=== PATIENT | female | born 1955 | race Caucasian/White ===

== ENCOUNTER 2018-02-11 00:25 | Outpatient (CLI) | payer MEDICAID, SELFPAY ==
--- NOTE | 2018-02-11 15:00 | DI.RAD_ITS ---
SYMPTOMS/DIAGNOSIS: NEW COMPRESSION FX, S32.04OD DEXA SCAN: Routine examination. Lateral view of the spine shows a compression fracture deformity of the L4 vertebral body. This was present on the x-ray of the lumbar spine from . No other compression fractures are seen. Evaluation of the left hip shows a total T score of -2.2 and a Z score of -1.1. This is consistent with osteopenia and an increased fracture risk. Evaluation of the lumbar spine shows a total T score of -1.0 and a Z score of 0.6. This is consistent within normal limits. No evidence of osteoporosis is present. IMPRESSION: No evidence of osteoporosis.
== END 2018-02-11 00:45 ==
PROVIDERS: PCP Family Medicine; Visit Provider Family Medicine
DX: M85.88 Other specified disorders of bone density and structure, other site (principal); S32.040D Wedge compression fracture of fourth lumbar vertebra, subsequent encounter for fracture with routine healing
CPT/HCPCS: 77080

== ENCOUNTER 2018-03-12 15:37 | Outpatient (CLI) | payer MEDICAID, SELFPAY ==
[2018-03-12 16:02] LABS: Abs Immature Grans 0.01 k/cumm (0.0-0.09); Absolute Basophil Count 0.06 k/cumm (0.0-0.2); Absolute Eosinophil Count 0.14 k/cumm (0.0-0.7); Absolute Lymphocyte Count 2.36 k/cumm (1.2-3.4); Absolute Monocyte Count 0.57 k/cumm (0.11-0.7); Absolute Neutrophil Count 4.49 k/cumm (1.2-6.7); Basophils % 0.8; Eosinophils % 1.8; HCT 39.1 % (36.0-46.0); HGB 13.3 g/dL (12.0-15.5); Immature Grans % 0.1; Lymphocytes % 30.9; Mean Corpuscular Hemoglobin 32.3 pg (27.0-33.0); Mean Corpuscular Volume 94.9 fL (80-95); Mean Platelet Volume 11.8 fL (8.0-11.0); Monocytes % 7.5; Neutrophils % 58.9; Platelet Count 147 x1000/uL (130-400); RBC 4.12 m/cumm (4.00-5.20); RBC Distribution Width 13.4 % (11.7-14.6); White Blood Cell Count 7.63 k/cumm (4.4-10.8)
[2018-03-12 16:12] LABS: Hemoglobin A1C 5.4 % (4.5-6.2)
[2018-03-12 16:53] LABS: ALT 16 U/L (12-78); AST 14 U/L (15-37); Albumin 3.7 g/dL (3.4-5.0); Alkaline Phosphatase 69 U/L (46-116); Anion Gap 7.9 mmol/L (3-11); BUN 17 mg/dL (7-18); Bilirubin, Total 0.4 mg/dL (0.2-1.0); CO2 28.1 mmol/L (21.0-32.0); CREATININE 0.85 mg/dL (0.55-1.02); Calcium 9.1 mg/dL (8.5-10.1); Chloride 104 mmol/L (98-107); Cholesterol 167 mg/dL (50-200); Glucose 90 mg/dL (70-100); HDL Cholesterol 60 mg/dL (40-60); LDL CHOLESTEROL 97 mg/dL (<100); Potassium 4.2 mmol/L (3.5-5.1); Sodium 140 mmol/L (136-145); TSH (W/Ref FT4) 1.25 uIU/mL (0.358-3.74); Total Protein 6.6 g/dL (6.4-8.2); Triglyceride 51 mg/dL (30-150)
[2018-03-15 07:25] LABS: Vitamin D 25 Total 43.2 ng/ml (30-100)
== END 2018-03-12 15:57 ==
PROVIDERS: PCP Student in an Organized Health Care Education/Training Program; Visit Provider Nurse Practitioner Psychiatric/Mental Health
DX: F50.00 Anorexia nervosa, unspecified (principal)
CPT/HCPCS: 36415; 80053; 80061; 82306; 83721; 83036; 84443; 85025; 93005; 93010

== ENCOUNTER 2018-06-23 14:46 | Outpatient (CLI) | payer MEDICAID, SELFPAY ==
[2018-06-23 20:24] LABS: TSH 0.96 uIU/mL (0.358-3.74)
== END 2018-06-23 15:06 ==
PROVIDERS: PCP Student in an Organized Health Care Education/Training Program; Visit Provider Student in an Organized Health Care Education/Training Program
DX: R53.83 Other fatigue (principal)
CPT/HCPCS: 84443

== ENCOUNTER 2019-07-07 01:26 | Outpatient (CLI) | payer MEDICAID, SELFPAY ==
--- NOTE | 2019-07-07 09:00 | ETT_ITS ---
APPROVED REPORT Exam: Exercise Treadmill Patient Location: Out-Patient Room/Bed: Stress Nurse: Rachna Houston RN BMI: 19.61 Baseline Rhythm: Sinus Rhythm Indications: Exertional dyspnea and chest pain. Medical History Medical History: Smoking Cardiac Medications: None, Allergies: No known drug allergies Cardiac Risk Factors: Smoking Pretest Chest Pain Characteristics: Exertional Chest pain Exercise History: Physically active Lung Sounds: Clear to auscultation Heart Sounds: Regular Stress Test Details Test: Exercise stress testing was performed using a Kirill protocol. Rest Stress HR Resting HR Supine: 68 bpm Max Heart Rate (APMHR): 156 bpm Resting HR Standin bpm Target HR (85% APMHR): 132 bpm Max HR Achieved: 135 bpm % of APMHR: 86 Recovery HR: 81 bpm HR response to stress: Normal HR response to stress BP Resting BP Supine: 170/90 mmHg Resting BP Standin/85 mmHg Max BP: 190/80 mmHg Recovery BP: 150/85 mmHg BP response to stress: Normal blood pressure response to stress. Comment: Drop in systolic BP upon immediate recovery. ECG Resting ECG: Sinus Rhythm Stress ECG: Sinus Tachycardia ST Change: No significant ST segment changes Recovery ECG: Sinus Rhythm Recovery ST Change: No significant ST segment changes Recovery Arrhythmia: VPC Clinical Reason for Termination: Fatigue Stress Symptoms: General Fatigue Exercise duration: 8 min00 sec Highest Stage Reached: Stage 3: 3.4 mph at 14% grade. Exercise capacity: 10.16 METs Functional Capacity: Above average capacity Angina Score: None Stress ECG Conclusion 1. Resting electrocardiogram was normal. 2. Patient exercised on the Kirill protocol and completed a workload of 10.16 METS. She achieved 86% of predicted heart rate for age. There were no symptoms to suggest angina 3. Normal heart rate and blood pressure response to exercise 4. Electrocardiographically negative for myocardial ischemia 5. No significant dysrhythmia Protocol Used: Kirill Protocol Stress Test Summary STAGE Time (mins) Speed (mph) Grade (%) HR BP SYMPTOMS METS Supine 68 170/90 Standing 89 150/85 1 3 1.7 10 112 160/85 4.6 2 6 2.5 12 125 190/80 7 3 9 3.4 14 135 10.2 1 min recovery 121 146/75 3 min recovery 91 182/86 6 min recovery 81 150/85
[2019-07-07 09:44] LABS: HCT 40.4 % (36.0-46.0); HGB 13.7 g/dL (12.0-15.5); Mean Corp. HGB Concentration 33.9 g/dL (32.0-36.0); Mean Corpuscular Hemoglobin 32.2 pg (27.0-33.0); Mean Corpuscular Volume 94.8 fL (80-95); Mean Platelet Volume 11.2 fL (8.0-11.0); Platelet Count 163 x1000/uL (130-400); RBC 4.26 m/cumm (4.00-5.20); RBC Distribution Width 13.6 % (11.7-14.6); White Blood Cell Count 6.17 k/cumm (4.4-10.8)
[2019-07-07 11:15] LABS: Total Iron Binding Capacity 293 ug/dL (250-450)
[2019-07-07 11:29] LABS: ALT 18 U/L (14-59); AST 14 U/L (15-37); Albumin 3.8 g/dL (3.4-5.0); Alkaline Phosphatase 75 U/L (46-116); Anion Gap 10.4 mmol/L (3-11); BUN 18 mg/dL (7-18); Bilirubin, Total 0.9 mg/dL (0.2-1.0); CO2 27.6 mmol/L (21.0-32.0); CREATININE 0.87 mg/dL (0.55-1.02); Calcium 9.5 mg/dL (8.5-10.1); Calculated LDL 107 mg/dL (<100); Chloride 106 mmol/L (98-107); Cholesterol 186 mg/dL (<200); Ferritin 76 ng/mL (8-252); Glucose 100 mg/dL (74-106); HDL Cholesterol 60 mg/dL (40-60); Potassium 3.7 mmol/L (3.5-5.1); Sodium 144 mmol/L (136-145); TSH (W/Ref FT4) 1.22 uIU/mL (0.36-3.74); Total Protein 6.7 g/dL (6.4-8.2); Triglyceride 96 mg/dL (<150); Vitamin B12 593 pg/mL (193-986)
== END 2019-07-07 01:46 ==
PROVIDERS: PCP Nurse Practitioner; Visit Provider Nurse Practitioner
DX: R06.09 Other forms of dyspnea (principal); R07.89 Other chest pain; I10 Essential (primary) hypertension; R00.2 Palpitations; F17.200 Nicotine dependence, unspecified, uncomplicated; R53.83 Other fatigue; F20.1 Disorganized schizophrenia
CPT/HCPCS: 36415; 80053; 80061; 85027; 82607; 82728; 83550; 84443; 93017

== ENCOUNTER 2020-11-05 03:53 | Outpatient (CLI) | payer MEDICARE, MEDICAID, SELFPAY ==
[2020-11-05 11:27] LABS: Abs Immature Grans 0.01 10^3/uL (0.0-0.06); Absolute Basophil Count 0.06 10^3/uL (0.0-0.2); Absolute Eosinophil Count 0.07 10^3/uL (0.0-0.7); Absolute Lymphocyte Count 2.46 10^3/uL (1.2-3.4); Absolute Neutrophil Count 3.27 10^3/uL (1.2-6.7); Basophils % 0.9; Eosinophils % 1.1; HCT 42.6 % (36.0-46.0); HGB 14.4 g/dL (11.2-15.7); Immature Grans % 0.2; Lymphocytes % 38.6; MCH 31.4 pg (27.0-33.0); MCHC 33.8 % (32.0-36.0); MPV 11.1 fL (8.0-11.0); Monocytes % 7.8; Neutrophils % 51.4; Nucleated RBC 0 %; Platelet Count 158 10^3/uL (130-400); RBC 4.58 10^6/uL (3.93-5.22); RDW 13.2 % (11.7-14.6); RDW-SD 45.3 fL; WBC 6.37 10^3/uL (4.4-10.8)
[2020-11-05 12:15] LABS: Hemoglobin A1C 5.4 % (<5.7)
[2020-11-05 12:37] LABS: Vitamin D 25 Total 37.4 ng/mL (30-100)
[2020-11-05 12:41] LABS: ALT 25 U/L (14-59); AST 21 U/L (15-37); Albumin 3.9 g/dL (3.4-5.0); Alkaline Phosphatase 74 U/L (46-116); Anion Gap 9.8 mmol/L (3-11); BUN 16 mg/dL (7-18); Bilirubin, Total 0.8 mg/dL (0.2-1.0); CO2 30.2 mmol/L (21.0-32.0); CREATININE 0.9 mg/dL (0.55-1.02); Calcium 9.9 mg/dL (8.5-10.1); Calculated LDL 118 mg/dL (<100); Chloride 102 mmol/L (98-107); Cholesterol 199 mg/dL (<200); Ferritin 91 ng/mL (8-252); Glucose 94 mg/dL (74-106); HDL Cholesterol 67 mg/dL (40-60); Magnesium 1.7 mg/dL (1.8-2.4); Sodium 142 mmol/L (136-145); TSH 1.12 uIU/mL (0.36-3.74); Triglyceride 74 mg/dL (<150); Vitamin B12 801 pg/mL (193-986)
[2020-11-05 12:42] LABS: Folate > 20.0 ng/mL (8.6-20.0)
[2020-11-05 13:09] LABS: FREE T4 1.18 ng/dL (0.76-1.46)
== END 2020-11-05 03:54 | disposition home or self-care (01) ==
LOC: LBO 03:54
PROVIDERS: PCP Nurse Practitioner; Visit Provider Psychiatry & Neurology Psychiatry
DX: F20.9 Schizophrenia, unspecified (principal); Z79.899 Other long term (current) drug therapy
CPT/HCPCS: 36415; 80053; 80061; 82306; 82607; 82728; 82746; 83036; 83735; 84439; 84443; 84481; 85025; 86140

== ENCOUNTER 2021-04-15 03:04 | Outpatient (CLI) | payer MEDICARE, MEDICAID, SELFPAY ==
[2021-04-15 13:00] LABS: Abs Immature Grans 0.02 10^3/uL (0.0-0.06); Absolute Basophil Count 0.05 10^3/uL (0.0-0.2); Absolute Eosinophil Count 0.04 10^3/uL (0.0-0.7); Absolute Lymphocyte Count 1.89 10^3/uL (1.2-3.4); Absolute Monocyte Count 0.63 10^3/uL (0.1-0.8); Absolute Neutrophil Count 4.28 10^3/uL (1.2-6.7); Basophils % 0.7; Eosinophils % 0.6; HGB 13.4 g/dL (11.2-15.7); Immature Grans % 0.3; Lymphocytes % 27.4; MCH 30.8 pg (27.0-33.0); MCHC 32.7 % (32.0-36.0); MCV 94.3 fL (80-95); MPV 10.8 fL (8.0-11.0); Monocytes % 9.1; Neutrophils % 61.9; Nucleated RBC 0 %; Platelet Count 175 10^3/uL (130-400); RBC 4.35 10^6/uL (3.93-5.22); RDW 13.4 % (11.7-14.6); RDW-SD 46.7 fL; WBC 6.91 10^3/uL (4.4-10.8)
[2021-04-15 14:35] LABS: ALT 21 U/L (14-59); AST 15 U/L (15-37); Alkaline Phosphatase 69 U/L (46-116); Anion Gap 6.8 mmol/L (3-11); BUN 11 mg/dL (7-18); Bilirubin, Total 0.5 mg/dL (0.2-1.0); CO2 31.2 mmol/L (21.0-32.0); CREATININE 0.8 mg/dL (0.55-1.02); Calcium 9.4 mg/dL (8.5-10.1); Chloride 104 mmol/L (98-107); Glucose 91 mg/dL (74-106); Potassium 4.4 mmol/L (3.5-5.1); Sodium 142 mmol/L (136-145); Total Protein 7.1 g/dL (6.4-8.2)
[2021-04-15 14:36] LABS: C-Reactive Protein < 0.05 mg/dL (0.0-0.3)
[2021-04-15 15:12] LABS: Vitamin B12 827 pg/mL (193-986)
[2021-04-15 15:14] LABS: Folate > 20.0 ng/mL (8.6-20.0)
== END 2021-04-15 03:05 | disposition home or self-care (01) ==
PROVIDERS: PCP Nurse Practitioner; Visit Provider Psychiatry & Neurology Psychiatry
DX: F20.9 Schizophrenia, unspecified (principal)
CPT/HCPCS: 36415; 80053; 80061; 82306; 82607; 82728; 82746; 83036; 83735; 84439; 84443; 85025; 86140

== ENCOUNTER 2021-09-09 00:39 | Outpatient (CLI) | payer MEDICARE, MEDICAID, SELFPAY ==
--- NOTE | 2021-09-09 08:30 | DI.MAMMO_ITS ---
Exam(s) MAMMO SCREENING EXAM: MAMMO SCREENING CLINICAL HISTORY: screening,z12.39 TECHNIQUE: Mammograms were interpreted according to the usual protocol including computer analysis w [id number] CAD system, tomosynthesis and C-view imaging. COMPARISON: None available. FINDINGS: The breasts are composed of heterogeneously dense fibroglandular densities, Breast Density category C . No suspicious masses or suspicious microcalcifications are seen. No skin thickening or abnormal axillary lymph nodes are seen. IMPRESSION: BI-RADS Category 1, Negative mammogram. Yearly screening mammography is recommended. Breast Density Category C, heterogeneously Dense. The mammogram demonstrates the patient's breast tissue is dense. Dense breast tissue is very common a nd is not abnormal but dense breast tissue can make it harder to find cancer on a mammogram. Also, de nse breast tissue may increase breast cancer risk. This information about the result of the mammogram report was provided to the patient to raise their awareness. Use this report when you speak with the patient about their risks for breast cancer, which includes their family history. At that time, you may recommend additional screening tests (Ultrasound or MRI) as they might be useful based on their r isk. A negative radiographic report should not delay biopsy if a dominant or clinically suspicious mass is present. Up to ten percent of cancers are not identified on mammography. A negative report may reinforce clinical impression. Adenosis and dense breasts may obscure an underlying neoplasm. False positive reports average 6 to 10%.
--- NOTE | 2021-09-09 08:30 | DI.CTLCSR_ITS ---
Exam(s) CT CHEST LUNG CANCER SCREEN EXAM: CT CHEST LUNG CANCER SCREEN CLINICAL HISTORY: Screening for lung cancer,current smoker, f17.210 TECHNIQUE: Imaging Protocol: Axial computed tomography images with coronal and sagittal reformatted images were created and reviewed COMPARISON: No exams were available for comparison FINDINGS: Tracheobronchial tree: Patent where visualized. Mediastinum and Flora: No dominant adenopathy or fluid collection. Pulmonary parenchyma: No consolidation or dominant measurable mass. Mild to moderate centrilobular an d paraseptal emphysema.. Linear scarring or atelectasis left lower lobe. Minimal scarring rectum at electasis right posterior lung base. Lung Nodules: None. Pleura: No effusion or pneumothorax. Heart: The heart is not dilated. Mild coronary artery calcifications are seen. Aorta: Thoracic aorta non-dilated.[id number] calcification. Upper abdomen: Unremarkable. Bones: Mild scoliosis and and mild degenerative changes of the thoracic spine. Soft Tissues: Unremarkable. IMPRESSION: Emphysematous changes. No pulmonary nodules. Lung RADS Cat 1 - Negative: No nodules and definitely benign nodules Lung-RADS 1.0 CATEGORIES: Category 0 - Prior chest CT exam(s) being located for comparison. Category 1 - Annual screening in 12 months. No nodules or definitely benign nodules. Category 2 - Annual screening in 12 months. Benign appearance. Nodules with low likelihood of becomin g active cancer. Category 3 - 6-month follow-up. Probably benign. Short-term follow-up suggested. Nodules with low lik elihood of becoming active cancer. Category 4A - 3-month follow-up and CT/PET if >8 mm in size. Suspicious finding. Findings which requi re additional testing. Category 4B - Findings which require additional testing and tissue sampling. Category 4X - Category 3 or 4 nodules with additional features or imaging findings that increases the suspicion of malignancy. Modifier S- Potentially clinically significant findings (non lung cancer) RADIATION DOSE DELIVERED: 86.07mGy.cm Total DLP 1.84mGy CTDIvol DATA REPOSITORY: All CT scans at this facility are submitted to the National Radiology Data Registry (NRDR) Dose Index Registry (DIR) with the [employer] (ACR). RADIATION OPTIMIZATION: All CT scans at this facility use at least one of these dose optimization te chniques: automated exposure control; mA and/or kV adjustment per patient size (includes targeted exa ms where dose is matched to clinical indication); or iterative reconstruction.
== END 2021-09-09 00:59 ==
PROVIDERS: PCP Nurse Practitioner; Visit Provider Nurse Practitioner
DX: Z12.31 Encounter for screening mammogram for malignant neoplasm of breast (principal); F17.210 Nicotine dependence, cigarettes, uncomplicated; Z12.2 Encounter for screening for malignant neoplasm of respiratory organs
CPT/HCPCS: 71271; 77063; 77067

== ENCOUNTER → 2021-10-15 13:32 | Outpatient (BNVA) | payer MEDICARE, MEDICAID, SELFPAY | PROVIDERS: PCP Nurse Practitioner; Referring Provider Nurse Practitioner; Visit Provider Surgery | DX: Z12.11 Encounter for screening for malignant neoplasm of colon (principal); Z12.12 Encounter for screening for malignant neoplasm of rectum; R19.5 Other fecal abnormalities; F20.9 Schizophrenia, unspecified; Z72.0 Tobacco use ==

== ENCOUNTER 2021-10-23 10:04 | Day surgery (SDC) | payer MEDICARE, MEDICAID, SELFPAY ==
--- NOTE | 2021-10-23 06:46 | W.COLOREPORT ---
Colonoscopy Report Date of procedure: 10/23/21 Pre-op diagnosis general: Colon Cancer Screening, + Cologuard Post-op diagnosis procedure note: other (colorectal polyps) Procedure: Colonoscopy with polypectomy Surgeon: Shira Rojas Anesthesia Type: General:No Airway Estimated blood loss (mL): 5 Pathology: other (ascending, transverse x2, descending x4 and rectal polyp) Complications: None Disposition: same day Indications: Ms Arreguin is a pleasant 66-year-old female who is here today with her caregiver to discuss a colonoscopy.? She has never had a colonoscopy before.? She recently underwent a Cologuard test which came back positive.? She denies any family history of colon cancer.? I discussed the procedure in detail as well as the prep with her and her caregiver.? We reviewed the risks and benefits of the procedure and the patient wished to proceed. Risks, benefits and complications have been reviewed. Complications include but are not limited to bleeding, pain, perforation, missed small lesion/polyp, sore throat, aspiration and adverse reaction to the medications. Questions were entertained and answered to their satisfaction and they wished to proceed. No guarantees were given or implied. Proceed with colonoscopy under sedation Prep: Miralax/Dulcolax Procedure Start Time: 11:21 Procedure End Time: 12:11 Retraction Time: 18 minutes Findings: Multiple sessile polyps Procedure Description: After informed consent was obtained the patient was taken to the procedure room and placed in a left decubitous position. Monitors were applied and a time out was done. The patients name, date of , procedure, allergies to medications and metal in their body was reviewed. The patient was then sedated. Once sedated and comfortable a rectal exam was done. External exam was normal. Internal exam revealed a normal sphincter tone and no palpable masses. The scope was then introduced and retro-flexed. no internal hemorrhoids, polyps or masses were identified on retro-flexion. The scope was then advanced to the cecum without difficulty. The ileocecal vlave and appendiceal orifice were identified. The prep was adequate. The scope was then slowly retracted over 18 minutes back into the rectum. Polyps were removed with cold forceps in the Transverse colon, descending colon and rectum. Polyps were removed with a hot snare in the Transverse colon and ascending colon. There was no diverticulosis noted. The scope was removed and the patient was woken up and taken back to Same day surgery in stable condition. The patient tolerated the procedure well and there were no immediate complications.
--- NOTE | 2021-10-23 06:47 | W.PM.DSUDISC ---
Discharge Plan Disposition Patient Disposition: HOME Condition: Good Discharge Details Reason For Visit: Colonoscopy Attending Provider: Shira Rojas Primary Care Provider: Lida Boyd Home Meds and New Rx's Prescriptions: Continued acetaminophen [Tylenol Extra Strength] 500 MG tablet 500 mg PO PRN blister daren meds lorazepam [Ativan] 1 mg tablet 1 mg PO DAILY PRN Rx Instructions: Note dated 08/09/20 [facility] Increased from 0.5 to 1 mg daily prn.cgc quetiapine [Seroquel] 50 mg tablet 25 mg PO QHS Label Comments: Decreases by Yang Cuevas to decrease am lethargy cholecalciferol (vitamin D3) 50 mcg (2,000 unit) capsule 50 mcg PO DAILY citalopram [Celexa] 10 mg tablet 10 mg PO DAILY calcium carbonate-vitamin D3 600 mg-10 mcg (400 unit) capsule 1 cap PO BID Qty: 180 3RF multivitamin [One Daily Multivitamin] Tablet 1 tab PO DAILY Qty: 30 11RF Rx Instructions: blister daren Invega Sustenna 117 mg/0.75 mL syringe 117 mg IM .[id number] Rx Instructions: 10/03/21 dose per Yang Cuevas NK vitamin B complex Capsule 1 cap PO DAILY Rx Instructions: 10/03/21 per WAYNE Cuevas guaifenesin 600 mg Tablet Extended Release 12hr 600 mg PO DIRECTED PRN Discontinued bisacodyl [Dulcolax (bisacodyl)] 5 mg tablet,delayed release (DR/EC) 5 mg PO ONCE Qty: 4 0RF Rx Instructions: Take according to provider's instructions for colonoscopy prep. polyethylene glycol 3350 17 gram/dose powder 17 g PO ONCE Qty: 238 0RF Rx Instructions: To be taken as directed by prescriber's office for colonoscopy prep. Discharge Instructions Instructions: Colorectal Polyps (DC) Additional Instructions: Findings: multiple polyps Follow up: will depend on the pathology results Please call if you develop: fevers >101.5 Nausea or Vomiting Abdominal pain that is not transient Rectal bleeding that is more then a tbsp A hard abdomen and inability to pass gas DAY SURGERY UNIT POST ENDOSCOPY INSTRUCTIONS Instructions for everyone who is given Anesthesia: For your safety, please do the following for the next 24 Hours: a. Do not drive or operate dangerous equipment b. Do not drink alcohol beverages or use any recreational drugs for the first 24 hours or while taking pain medications. The medications in your body may have a reaction that can be dangerous. c. Do not make any important decisions or sign any important papers 1. Generally there are no restrictions on your activity after a day or so has gone by, but you may feel a bit fatigued for a few days. 2. After you arrive home you may have a light meal and return to a normal diet as you can tolerate it without feeling sick to your stomach. 3. After surgery, you may feel pain or discomfort. This should be only transient, but if it persists please contact your doctor. 4. If there are any questions regarding the findings of your procedure, please feel free to contact your doctor. 6. If you are unable to contact your doctor with a problem, contact the hospital at [phone]. 7. Continue all your regular medications unless directed otherwise. I understand the above instructions and have no questions. Signature of Patient or Responsible Adult Escort Date/Time Name of Responsible Adult Escort Signature of Nurse Date/Time Activity:: Activity as Tolerated Diet:: As Tolerated Discharge Orders Discharge Orders: Discharge Order (Routine); Ordered 10/23/21 Ordered By: Shira Rojas
[2021-10-23 10:20] VITALS: BP 149/79; PULSE 68; RESP 18; TEMP 36; O2SAT 95
--- NOTE | 2021-10-23 10:35 | ANES.PREOP_ITS ---
General Info Date of Service Date Performed: 10/23/21 Height: 5 ft 7.25 in Weight: 57.8 kg Body Mass Index (BMI): 19.8 Surgical Procedure: Operation Date: 10/23/21 11:35 Proposed Procedure Side Surgeon p Colonoscopy Shira Rojas MD Meds Allergies and Home Medications Allergies Allergy/AdvReac Type Severity Reaction Status Date / Time No Known Allergies Allergy Verified 10/23/21 10:29 Home Medication Medication Instructions Recorded acetaminophen 500 mg tablet 500 mg PO PRN 07/03/17 (Tylenol Extra Strength) Blister Cliff Meds 10/07/17 lorazepam 1 mg tablet (Ativan) 1 mg PO DAILY PRN 09/05/20 cholecalciferol (vitamin D3) 50 50 mcg PO DAILY 05/16/21 mcg (2,000 unit) capsule citalopram 10 mg tablet (Celexa) 10 mg PO DAILY 05/16/21 quetiapine 50 mg tablet (Seroquel) 25 mg PO QHS 05/16/21 calcium carbonate 600 mg-vitamin 1 cap PO BID #180 caps 08/12/21 D3 10 mcg (400 unit) capsule multivitamin (One Daily 1 tab PO DAILY #30 tabs 08/12/21 Multivitamin tablet) paliperidone palmitate 117 mg/0.75 117 mg IM .[id number] 10/08/21 mL intramuscular syringe (Invega Sustenna) vitamin B complex 1 cap PO DAILY 10/08/21 bisacodyl 5 mg tablet,delayed 5 mg PO ONCE #4 tabs 10/15/21 release (Dulcolax (bisacodyl)) polyethylene glycol 3350 17 17 g PO ONCE #238 grams 10/15/21 gram/dose oral powder guaifenesin 600 mg tablet, 600 mg PO DIRECTED PRN 10/22/21 extended release 12 hr Current Visit Medications: Current Medications Generic Name Dose Route Start Last Admin Trade Name Freq PRN Reason Stop Dose Admin Hyoscyamine Sulfate 0.125 mg 10/23/21 06:47 Hyoscyamine 0.125 Mg Sl/Oral/Chew SL DIRECTED PRN Ringer's Solution 1,000 mls @ 80 mls/hr 10/23/21 06:00 IV 11/21/21 23:59 INFUSION BECK IV Miscellaneous Supplies 1 each 10/23/21 06:00 Iv Access IV 11/21/21 23:59 DIRECTED [facility] Ondansetron HCl 4 mg 10/23/21 06:47 Ondansetron 4 Mg/2 Ml Vial IVP Q4H PRN PRN Nausea / Vomiting Sodium Chloride 0 ml 10/23/21 06:00 Normal Saline Flush 10 Ml Syr IV 11/21/21 23:59 PRN PRN Sodium Chloride 0 ml 10/23/21 06:00 Normal Saline 10 Ml Vial IJ 11/21/21 23:59 DIRECTED PRN Sterile Water 0 ml 10/23/21 06:00 Water,Injection,Sterile 10 Ml Vial IJ 11/21/21 23:59 DIRECTED PRN PFSH Active Problems Active Problems: Problem Status Onset Code Positive colorectal cancer screening using Cologuard test R19.5 Lung cancer screening declined by patient Z53.20 TAYLOR (dyspnea on exertion) R06.09 Chest pain R07.9 Tobacco abuse Z72.0 Heart palpitations 2018 R00.2 Schizophrenia F20.9 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 Had picked it off, but it has grown back and seems larger. Smooth, soft, rounded black mole -- with distinct dark dots within it. Not bleeding, mobile. Note: other small lesions warrant visual eval by derm (above left lip, rt cheek). POssible Hx seeing dermatology ([facility]?) years ago. Closed compression fracture of L4 lumbar vertebra (11/16/17) [facility], @ risk for osteoporosis .. Dexa ( Colon cancer screening declined Encounter to establish care Fatigue Mammogram declined Medicare annual wellness visit, subsequent Medication course changed (05/2018) Sees DAX[facility] Rocha .. changing meds: stopped Seroquel, scheduled for injection [ ] Osteopenia per DEXA Medical History Comments:: Pt has expiratory wheezing in upper and base of right lung Surgical History Surgical History excision deformity Left ear (~05/2008) Dr. Edi Esteban Tobacco Smoking/Tobacco Use Status: Current every day Tobacco Type: cigarettes Smoking packs per day: 1 Smoking cigarettes per day: 20.0 Years smoked: 40 Smoking pack- years: 40.00 Passive smoking exposure: Yes Second hand exposure: Yes Alcohol Alcohol Intake: never Substance Use Substance use: Never Substance use type: does not use Vital Signs and Lab Results Vital Signs Most Recent Vital Signs in EMR: Most Recent Vital Signs Temp Pulse Resp BP Pulse Ox 36.0 C L 68 18 149/79 H 95 10/23/21 10:20 10/23/21 10:20 10/23/21 10:20 10/23/21 10:20 10/23/21 10:20 Lab Results Blood Type / Crossmatch: No Data to Display Complete Blood Count: No Data to Display Complete Metabolic Panel: No Data to Display Liver Function Panel: No Data to Display Coagulation Panel: No Data to Display Cardiac Panel: No Data to Display Arterial Blood Gas: No Data to Display Venous Blood Gas: No Data to Display Pancreas Panel: No Data to Display Thyroid Panel: No Data to Display Infectious Disease: No Data to Display Blood Cultures: No Data to Display Toxicology Panel: No Data to Display Imaging and Studies Imaging and Studies Study information below may be from another EMR and interpreted by another provider. Please see original notes in EMR for more complete details. Stress Test Summary: DATE OF SERVICE: : 1955 APPROVED REPORT Exam: Exercise Treadmill Patient Location: Out-Patient Room/Bed: Stress Nurse: Rachna Houston RN BMI: 19.61 Baseline Rhythm: Sinus Rhythm Indications: Exertional dyspnea and chest pain. Conclusion: Normal Stress Test Anesthesia Assessment and Plan Anesthesia History Personal History: No History of Anesthesia Complications Family History: No Family History of Anesthesia Complications Exercise Tolerance Exercise Tolerance: Metabolic Equivalents>4 Pertinent Negatives Pertinent Negatives: No Symptoms of GERD Cardiac & Pulmonary Exam Cardiac Exam: Normal S1/S2 Heart Sounds Pulmonary Exam: Clear Bilateral Breath Sounds Implantable Cardiac Device Does patient have a Pacemaker or an ICD?: No Airway Exam Known Difficult Airway: No Mallampati Class: 1 Mouth Opening: Normal (> 3cm) Thyromental Distance: Greater than 3 cm Neck Range of Motion: Full ROM Neck Circumference: Normal Teeth Condition: Removable Dentures/Plates Upper ASA Classification ASA Score: ASA 2 Emergency Case?: No NPO Status NPO Status: NPO Clears >2 hours, Solids >8 hours Anesthesia Plan Resuscitation Status: Full Code Anesthesia Technique: General Anesthesia Airway Planned: Natural Airway Monitors Used: Standard Monitors Preoperative Comments:: Pt. states she has a very mild cold. Preop spoke to her caregiver who states she always has mild allergies this time of year with the pollen.
[2021-10-23] MEDS: Lactated Ringers 1,000 ML 80 ML IV (10:43)
[2021-10-23 11:19] VITALS: BMI 19.8
--- NOTE | 2021-10-23 11:37 | BOWEL_PTH ---
PATIENT: Haydee Arreguin LOC: [facility] U#:[id number] AGE/SX: 66/F ROOM: RE10/23/[address]: Shira Rojas MD : 1955 BED: DIS: 10/23/2021 SPEC #: [id number] RECD: 10/23/21 12:51 STATUS: JOSE REAngelica #: [id number] NAOMIE: 10/23/21 11:[address]: Shira Rojas DEPT: Surgical Specimen RECD BY: Avelina Mitchell ENTERED: 10/23/21 12:53 SP TYPE: Bowel OTHR DR: Lida Boyd, JENA Tissues: 1 - BIOPSY BOWEL 2 - BIOPSY BOWEL 3 - BIOPSY BOWEL 4 - BIOPSY BOWEL 5 - BIOPSY BOWEL Procedures: GROSS AND MICRO LEVEL 4 Comments: [id number]
[2021-10-23 12:20] VITALS: BP 138/77; PULSE 66; RESP 18; TEMP 36.2; O2SAT 96
[2021-10-23] MEDS: Ondansetron 4 MG/2 ML VIAL IVP (12:44)
[2021-10-23 12:52] VITALS: BP 153/68; PULSE 54; RESP 16; TEMP 36; O2SAT 90
--- NOTE | 2021-10-23 12:58 | W.ANESPOSTOP ---
Postoperative Evaluation Date, Time and Location Date Performed: 10/23/21 Time Performed: 12:58 Patient Location: Day Surgery Unit Vital Signs Most Recent Imported Vital Signs: Most Recent Vital Signs Temp Pulse Resp BP Pulse Ox 36.2 C L 66 18 138/77 96 10/23/21 12:20 10/23/21 12:20 10/23/21 12:20 10/23/21 12:20 10/23/21 12:20 Pain Score Most Recent Pain Score: Most Recent Pain Score Pain Level 0 10/23/21 12:20 Assessment Mental Status: Awake (Alert & Oriented to Patient Baseline) Airway and Respiratory Function: Patent airway with normal (patient baseline) respiratory exam Cardiovascular Function: Hemodynamically Stable Hydration Status: Adequately Hydrated Nausea & Vomiting: No Nausea or Vomiting Pain: Pt. Denies Any Pain Peripheral Nerve Block: Patient did not receive a nerve block Postoperative Comments:: Patient seen earlier today and was doing well.
== END 2021-10-23 14:12 | disposition home or self-care (01) ==
PROVIDERS: PCP Nurse Practitioner; Visit Provider Surgery
PROC: 0DJD8ZZ Inspection of Lower Intestinal Tract, Via Natural or Artificial Opening Endoscopic (ICD-10-PCS; CPT 45378; principal; 2021-10-23 11:30)
DX: R19.5 Other fecal abnormalities (principal); F20.9 Schizophrenia, unspecified; F17.210 Nicotine dependence, cigarettes, uncomplicated; Z79.899 Other long term (current) drug therapy; K62.1 Rectal polyp; K62.5 Hemorrhage of anus and rectum; K63.89 Other specified diseases of intestine
CPT/HCPCS: 45385; 45380; 88305; J2405

== ENCOUNTER 2022-07-29 10:41 | Outpatient (REF) | payer MEDICARE, MEDICAID, SELFPAY | END 2022-07-29 10:42 | disposition home or self-care (01) | LOC: LBN 10:41 | PROVIDERS: PCP Nurse Practitioner; Visit Provider Nurse Practitioner | DX: R10.11 Right upper quadrant pain (principal); R82.998 Other abnormal findings in urine | CPT/HCPCS: 87077; 87186; 87086 ==

== ENCOUNTER 2022-07-29 13:11 | Outpatient (CLI) | payer MEDICARE, MEDICAID, SELFPAY ==
--- NOTE | 2022-07-29 10:30 | DI.US_ITS ---
Exam(s) US ABDOMEN EXAM: US ABDOMEN CLINICAL HISTORY: RUQ pain R10.11 TECHNIQUE: Ultrasound abdomen performed using standard protocol. COMPARISON: CT CT CHEST LUNG CANCER SCREEN from 09/09/2021 FINDINGS: ABDOMINAL AORTA AND IVC: There is atherosclerosis present. The proximal aorta measures 2.7 cm. PANCREAS: Normal where visualized. LIVER: The liver measures 20 cm long. Hepatopedal flow in the Portal Vein. There are 3 well-circumsc ribed hyperechoic masses seen within the liver. The largest measures 1.8 x 1.2 x 1.6 cm. There is a Meliton's lobe of the liver. GALLBLADDER:No evidence of cholelithiasis. No evidence of wall thickening. No pericholecystic fluid i dentified. BILIARY SYSTEM: Common bile duct measures < 7 mm. No intrahepatic biliary ductal dilation. CHEEK'S SIGN: Negative. KIDNEYS: Kidneys are symmetric in size. No evidence of renal calculi. No evidence of hydronephrosis. There is a 0.8 cm simple cyst in the right kidney. No follow-up is recommended. There is a 1.5 cm c yst in the left kidney. It has a tiny calcification within the wall. SPLEEN: Not enlarged. ASCITES: None seen. IMPRESSION: 1. Three well-circumscribed hyperechoic masses in the liver. Sonographically these could be consiste nt with benign hepatic hemangiomas. Further evaluation with a CT or MRI of the abdomen using the [facility] hemangioma protocol is recommended. 2. Bilateral renal cysts. The 1.5 cm left renal cyst has a calcification within the wall. These may be further evaluated with the abdominal CT or MRI. DATA REPOSITORY:
--- NOTE | 2022-07-29 10:30 | DI.RAD_ITS ---
Exam(s) XR CHEST 2V PA LATERAL EXAM: XR CHEST 2V PA LATERAL CLINICAL HISTORY: Cough, SOB R05.9 F17.200 SMOKER TECHNIQUE: 2D digital imaging was performed of the chest. Two images were obtained. PA and lateral views were obtained. COMPARISON: CT CT CHEST LUNG CANCER SCREEN from 09/09/2021 FINDINGS: MEDIASTINUM: Normal. HEART: Normal. PULMONARY VASCULATURE: Normal. LUNGS: The lungs are hyperinflated consistent with underlying COPD. No focal consolidating infiltrat es are seen. There is a question of a nodule overlying the right 6th rib anteriorly. This may also represent a rib lesion. PLEURAL SPACE: No pleural effusion or pneumothorax. BONE:Within normal limits for the patient's age. Old healing fracture of the left 7th rib. OTHER FINDINGS:Normal. IMPRESSION: 1. Question of a pulmonary nodule in the lateral aspect of the right mid lung. CT scan of the chest is recommended for further evaluation. 2. COPD. No focal consolidating infiltrate. DATA REPOSITORY: RADIATION DOSE DELIVERED:
== END 2022-07-29 13:31 ==
LOC: DI 13:12
PROVIDERS: PCP Nurse Practitioner; Visit Provider Nurse Practitioner
DX: R06.02 Shortness of breath (principal); R05.8 Other specified cough; F17.210 Nicotine dependence, cigarettes, uncomplicated; J44.9 Chronic obstructive pulmonary disease, unspecified; R91.8 Other nonspecific abnormal finding of lung field; R10.11 Right upper quadrant pain; K76.89 Other specified diseases of liver; N28.1 Cyst of kidney, acquired
CPT/HCPCS: 71046; 76700

== ENCOUNTER 2022-08-04 10:11 | Emergency (ER) | payer MEDICARE, MEDICAID, SELFPAY ==
[2022-08-04 10:30] VITALS: BP 151/80; PULSE 75; RESP 16; O2SAT 96
[2022-08-04 10:34] VITALS: TEMP 36.4
--- NOTE | 2022-08-04 11:01 | ED.GENADUL_ITS ---
Discharge Plan Disposition Patient Disposition: Home Discharge Details Clinical Impression: Pain Primary Care Provider: Lida Boyd ED Provider: Razia Andrews Home Meds and New Rx's Prescriptions: Continued nitrofurantoin monohyd/m-cryst [Macrobid] 100 mg capsule 100 mg PO BID Qty: 10 0RF Rx Instructions: must administer with a meal/food acetaminophen [Tylenol Extra Strength] 500 MG tablet 500 mg PO PRN blister cliff meds lorazepam [Ativan] 1 mg tablet 1 mg PO DAILY PRN Rx Instructions: Note dated 08/09/20 [facility] Increased from 0.5 to 1 mg daily prn.cgc quetiapine [Seroquel] 50 mg tablet 25 mg PO QHS Patient Comments: Decreases by Yang Cuevas to decrease am lethargy cholecalciferol (vitamin D3) 50 mcg (2,000 unit) capsule 50 mcg PO DAILY citalopram [Celexa] 10 mg tablet 10 mg PO DAILY multivitamin [One Daily Multivitamin] Tablet 1 tab PO DAILY Qty: 30 11RF Rx Instructions: blister cliff Invega Sustenna 117 mg/0.75 mL syringe 117 mg IM .[id number] Rx Instructions: 10/03/21 dose per Yang Cuevas [facility] vitamin B complex Capsule 1 cap PO DAILY Rx Instructions: 10/03/21 per WAYNE Cuevas calcium carbonate-vitamin D3 600 mg-10 mcg (400 unit) capsule 1 cap PO BID Qty: 180 0RF guaifenesin 600 mg Tablet Extended Release 12hr 600 mg PO DIRECTED PRN Discharge Instructions Instructions: Shortness of Breath (ED) Additional Instructions: No acute changes on the CTs, labs are within normal limits. No evidence of pneumonia. I do suspect that the pain is coming from your previously broken ribs. Follow up with primary care provider in 3-5 days. Return to ED sooner if any worsening or concerns. Increase oral fluids. Please take the pain medication as directed with food, no driving or operating heavy machinery while taking the medication as this may cause you to be sleepy and may also cause constipation. Please follow-up with your PCP regarding further pain management. Please take Tylenol or Ibuprofen with food every 4-6 hours as needed for pain and swelling. I will also give you a lidocaine patch which you can get [id number]. Referrals: Lida Boyd, [facility] [Primary Care Provider] - 3 days Discharge Data Discharge Date/Time-TO BE ENTERED AT DEPARTURE: 08/04/22 12:46 Medical Decision Making 67-year-old female presents to the ER with a chief complaint of right upper quadrant abdominal pain and chest pain which has been ongoing for the last couple of months. She is requesting pain management. She does have some rhonchi noted on auscultation, she is a daily smoker. She reports that she was seen on the approximately week ago and was told that she had some cysts on her kidneys and a nodule on her lung. She reports sharp shooting pains. Denies any fever chills, does report some nausea no vomiting denies any problems urinating. She does have a history of UTI that she was just diagnosed with and she is taking Macrobid. Labs are noted below, see CT imaging noted below CT scan shows nothing acute, labs are largely within normal limits. Patient was given an oxycodone I will send home 4 tablets of oxycodone with her and have her follow-up with her PCP regarding further pain management. This text was generated using [employer] system, please disregard any oddities of phrase or misspellings. Imaging Data Radiologic Study: Imaging: CT Scan Radiologist's impression: COMPARISON: CR LUMBAR SPINE COMPLETE from 11/02/[address] CHEST LUNG CANCER SCREEN from 09/09/2021 CR XR CHEST 2V PA LATERAL from 07/29/2022 FINDINGS: CHEST: Tracheobronchial tree: Patent where visualized. Pulmonary parenchyma: No dominant measurable mass. Emphysematous changes greater at the upper lobes. Dependent changes noted at the lung bases, left g reater than right. Left basilar atelectasis. Infiltrate difficult to exclude.. Pleura: No effusion or pneumothorax. Lymph nodes: Within normal limits. Aorta: Thoracic portion non-dilated. Atherosclerotic changes. Heart: Enlarged, particularly left ventricle. Bones: Right rib fractures. Callus formation over a rib fracture CT counts for the questioned density on recent chest x-ray. No lytic or blastic lesions.No compression fractures. ABDOMEN: Liver: Normal density. No measurable mass. Gallbladder and biliary tract: No radiodense calculus or dilation. Pancreas: Normal density, no abnormal calcifications or inflammatory process. Spleen: Normal. Kidneys: Normal size, contour and axis. No radiodense stones or obstructive uropathy. No suspicious masses seen. Adrenal glands: No masses seen. Aorta: Abdominal portion non-dilated. Lymph nodes: Within normal limits. Soft tissues: Unremarkable. PELVIS: Bladder: Symmetric distention, no gross wall thickening. Bowel: No obstruction or bowel wall thickening. Peritoneal cavity: No ascites, collection or mesenteric inflammatory response. Bones: Stable fractures of the inferior endplate L2 and superior L4. Degenerative changes greatest at L5-S1. Reproductive organs: Within normal limits. IMPRESSION: Atelectasis and dependent changes at the left lung base. Question of superimposed infiltrate. No acute abnormality in the abdomen or pelvis.. Lab Data Lab results reviewed: Yes I reviewed the patient's lab results. Labs: Laboratory Tests Range/Units 08/04/22 08/04/22 10:54 10:54 WBC (4.4-10.8) 10^3/uL 6.87 RBC (3.93-5.22) 10^6/uL 4.68 Hgb (11.2-15.7) g/dL 14.4 Hct (36.0-46.0) % 42.9 MCV (80-95) fL 92 MCH (27.0-33.0) pg 30.8 MCHC (32.0-36.0) % 33.6 RDW (11.7-14.6) % 13.3 Plt Count (130-400) 10^3/uL 164 MPV (8.0-11.0) fL 10.6 Immature Gran % 0.1 Neutrophils % 56.9 Lymphocytes % 33.9 Monocytes % 7.4 Eosinophils % 1.0 Basophils % 0.7 Nucleated RBC % (0.0-0.3) % 0.0 Absolute Neutrophils (1.2-6.7) 10^3/uL 3.90 Absolute Lymphocytes (1.2-3.4) 10^3/uL 2.33 Absolute Monocytes (0.1-0.8) 10^3/uL 0.51 Absolute Eosinophils (0.0-0.7) 10^3/uL 0.07 Absolute Basophils (0.0-0.2) 10^3/uL 0.05 Sodium (136-145) mmol/L 140 Potassium (3.5-5.1) mmol/L 4.0 Chloride (98-107) mmol/L 102 Carbon Dioxide (21.0-32.0) mmol/L 32.8 H Anion Gap (3-11) mmol/L 5.2 BUN (7-18) mg/dL 13 Creatinine (0.55-1.02) mg/dL 0.9 Est GFR (CKD-EPI 2020) (mL/min/1.73m2) 70.07 Glucose (74-106) mg/dL 110 H Calcium (8.5-10.1) mg/dL 10.0 Magnesium (1.8-2.4) mg/dL 1.8 Total Bilirubin (0.2-1.0) mg/dL 0.6 AST (15-37) U/L 15 ALT (14-59) U/L 21 Alkaline Phosphatase (46-116) U/L 100 Total Protein (6.4-8.2) g/dL 7.8 Albumin (3.4-5.0) g/dL 4.0 Lipase (16-77) U/L 46 HPI General Mode of arrival: ambulatory . Date/Time Provider Initiated Documentation: 08/04/22 10:33 . Limitations to Documentation: no limitations . Information obtained by: patient, RN notes reviewed and old records reviewed . HPI Narrative: 67-year-old female presents to the ER with a chief complaint of right upper quadrant abdominal pain and chest pain which has been ongoing for the last couple of months. She is requesting pain management. She does have some rhonchi noted on auscultation, she is a daily smoker. She reports that she was seen on the approximately week ago and was told that she had some cysts on her kidneys and a nodule on her lung. She reports sharp shooting pains. Denies any fever chills, does report some nausea no vomiting denies any problems urinating. She does have a history of UTI that she was just diagnosed with and she is taking Macrobid. Related Data Home Medications Medication Instructions Recorded Confirmed acetaminophen 500 mg tablet 500 mg PO PRN 07/03/17 10/23/21 (Tylenol Extra Strength) Blister Cliff Meds 10/07/17 10/17/21 lorazepam 1 mg tablet (Ativan) 1 mg PO DAILY PRN 09/05/20 10/23/21 cholecalciferol (vitamin D3) 50 50 mcg PO DAILY 05/16/21 10/23/21 mcg (2,000 unit) capsule citalopram 10 mg tablet (Celexa) 10 mg PO DAILY 05/16/21 10/23/21 quetiapine 50 mg tablet (Seroquel) 25 mg PO QHS 05/16/21 10/23/21 multivitamin (One Daily 1 tab PO DAILY #30 tabs 08/12/21 10/23/21 Multivitamin tablet) paliperidone palmitate 117 mg/0.75 117 mg IM .[id number] 10/08/21 10/23/21 mL intramuscular syringe (Invega Sustenna) vitamin B complex 1 cap PO DAILY 10/08/21 10/23/21 guaifenesin 600 mg tablet, 600 mg PO DIRECTED PRN 10/22/21 10/23/21 extended release 12 hr calcium carbonate 600 mg-vitamin 1 cap PO BID #180 tabs 07/14/22 D3 10 mcg (400 unit) capsule nitrofurantoin 100 mg PO BID #10 caps 07/29/22 07/29/22 monohydrate/macrocrystals 100 mg capsule (Macrobid) Previous Rx's Medication Instructions Recorded multivitamin (One Daily 1 tab PO DAILY #30 tabs 08/12/21 Multivitamin tablet) calcium carbonate 600 mg-vitamin 1 cap PO BID #180 tabs 07/14/22 D3 10 mcg (400 unit) capsule nitrofurantoin 100 mg PO BID #10 caps 07/29/22 monohydrate/macrocrystals 100 mg capsule (Macrobid) Allergies Allergy/AdvReac Type Severity Reaction Status Date / Time No Known Allergies Allergy Verified 10/23/21 10:29 General Stated Complaint: Abd Prob HYACINTH: 3 Review of Systems All systems reviewed & are unremarkable except as noted in HPI and below Respiratory Respiratory: Reports cough Gastrointestinal Gastrointestinal: Reports as per HPI and Reports abdominal pain PFSH All Active Problems (Updated 08/04/22 @ 12:32 by Razia Andrews NP) Pain (Acute) Serrated adenoma of colon (Acute) Hyperplastic colon polyp (Acute) Tubular adenoma of colon (Acute) Positive colorectal cancer screening using Cologuard test (Acute) Lung cancer screening declined by patient (Acute) TAYLOR (dyspnea on exertion) (Acute) Chest pain (Acute) Tobacco abuse (Acute) Heart palpitations (Chronic 2018) faint, tired, seconds of heart pounding, do their own hting can't get up, will feel faint ... Schizophrenia (Acute) Disorganized schizophrenia (Acute) Medical History (Updated 08/04/22 @ 12:32 by Razia Andrews NP) Anxiety Atypical mole of neck Has been there a while, 4 years at least? Had picked it off, but it has grown back and seems larger. Smooth, soft, rounded black mole -- with distinct dark dots within it. Not bleeding, mobile. Note: other small lesions warrant visual eval by derm (above left lip, rt cheek). POssible Hx seeing dermatology ([facility]?) years ago. Closed compression fracture of L4 lumbar vertebra (11/16/17) [facility], @ risk for osteoporosis .. Dexa ( Colon cancer screening declined Encounter to establish care Fatigue Mammogram declined Medicare annual wellness visit, subsequent Medication course changed (05/2018) Sees [facility] Rocha .. changing meds: stopped Seroquel, scheduled for injection [ ] Osteopenia per DEXA Surgical History (Updated 11/01/21 @ 11:46 by Amy Wallace RN) excision deformity Left ear (~05/2008) Dr. Edi Esteban History of colonoscopy (~10/2021) Family History Mother , stomach ca at age 40. Stomach cancer Brother , at age 63. Melanoma Social History Smoking/Tobacco Use Status: Current every day Tobacco Type: cigarettes Smoking packs per day: 1 Smoking cigarettes per day: 20.0 Years smoked: 40 Smoking pack- years: 40.00 Tobacco: How many years used: 40 Quit status: not considering quitting Second Hand Exposure: Yes Smoking risk assessment performed?: Yes Alcohol Intake: never Drug use: Never Substance use type: does not use Adopted: No Caregiver/Support person: Yes Foster care: No Household members: other Details: [place]- Since 2001, 16 People Housing: assisted living facility Number of Children: 0 Communication Needs: None Education Level: high school Do you need help understanding health information?: Rarely current occupation: Disabled Pets and animals: No Sexually active: No Do you think of yourself as: straight/heterosexual Current gender identity: female What is your relationship status?: How often do you talk on the phone with friends or family?: three or more times per week How often do you get together with friends or relatives?: once per week Do you belong to any clubs or organized social groups?: yes Panel score (0-1 are the most socially isolated patients): 2 What type of physical activity do you participate in: walking Duration: 15-30 minutes/day Frequency: 1-2 times per week [employer] al[employer] needs: No Seatbelt use: always Helmet use: Yes Helmet use: always Drive intox or ride w/intox armored truck driver: No Water heater temp set <120 deg: Yes Working smoke detector in home: Yes Fire extinguisher in home: Yes Carbon monox detector in home: Yes Firearms in home: No Do you feel safe at home: Yes Additional Social history: [place] Patient Exam Narrative Exam Narrative: Constitutional: Alert and oriented x3. Appears stated age. Normal body habitus. Head: Normocephalic, no trauma. Eyes: Pupils PERRL, Red reflex noted, EOM's intact. Eyelids symmetrical without lesions, discharge, or swelling. ENT: Bilateral TM's WNL, External ear normal to inspection, no mastoid TTP, swelling, or erythema, Nasal turbinates WNL, no nasal discharge. Normal dentition, Posterior pharynx WNL, no exudate. Chest: RRR, Normal S1, S2, distal pulses intact. Resp: Rhonchi noted Abdomen: Soft, non-distended, Normoactive bowel sounds all 4 quads. Musculoskeletal: Normal gait, 5/5 strength to all four extremities. Skin: No suspicious rashes or lesions. Capillary refill less than 2 sec. Neurologic: Cranial nerves II-XII intact. Alert and oriented x 3. Motor: No deficits noted. Sensory: Intact bilaterally all 4 extremities. Reflexes: DTR's intact bilaterally.. Hematologic/Lymphatic: No ecchymosis, no lymphadenopathy. Course Vital Signs Vital signs: Vital Signs Pulse 75 08/04/22 10:30 Respiratory Rate 16 08/04/22 10:30 Blood Pressure 151/80 H 08/04/22 10:30 Pulse Oximetry 96 08/04/22 10:30 Temperature 36.4 C 08/04/22 10:34 Temperature Source Oral 08/04/22 10:34 Pulse 75 08/04/22 10:30 Respiratory Rate 16 08/04/22 10:30 Blood Pressure 151/80 H 08/04/22 10:30 Blood Pressure Position Sitting 08/04/22 10:30 Pulse Oximetry 96 08/04/22 10:30 Oxygen Delivery Method Room Air 08/04/22 10:30 Oxygen Flow Rate 0 08/04/22 10:30 Pain Level 8 08/04/22 10:30
[2022-08-04 11:02] LABS: Abs Immature Grans 0.01 10^3/uL (0.0-0.06); Absolute Basophil Count 0.05 10^3/uL (0.0-0.2); Absolute Eosinophil Count 0.07 10^3/uL (0.0-0.7); Absolute Lymphocyte Count 2.33 10^3/uL (1.2-3.4); Absolute Monocyte Count 0.51 10^3/uL (0.1-0.8); Basophils % 0.7; HCT 42.9 % (36.0-46.0); HGB 14.4 g/dL (11.2-15.7); Immature Grans % 0.1; Lymphocytes % 33.9; MCH 30.8 pg (27.0-33.0); MCHC 33.6 % (32.0-36.0); MCV 92 fL (80-95); MPV 10.6 fL (8.0-11.0); Monocytes % 7.4; Neutrophils % 56.9; Platelet Count 164 10^3/uL (130-400); RBC 4.68 10^6/uL (3.93-5.22); RDW 13.3 % (11.7-14.6); RDW-SD 45.3 fL; WBC 6.87 10^3/uL (4.4-10.8)
[2022-08-04 11:17] LABS: ALT 21 U/L (14-59); AST 15 U/L (15-37); Alkaline Phosphatase 100 U/L (46-116); Anion Gap 5.2 mmol/L (3-11); BUN 13 mg/dL (7-18); Bilirubin, Total 0.6 mg/dL (0.2-1.0); CO2 32.8 mmol/L (21.0-32.0); CREATININE 0.9 mg/dL (0.55-1.02); Chloride 102 mmol/L (98-107); Estimated GFR 70.07 (mL/min/1.73m2); Glucose 110 mg/dL (74-106); Lipase 46 U/L (16-77); Magnesium 1.8 mg/dL (1.8-2.4); Sodium 140 mmol/L (136-145); Total Protein 7.8 g/dL (6.4-8.2)
--- NOTE | 2022-08-04 11:25 | DI.CT_ITS ---
Exam(s) CT CHEST/ABD/PEL W EXAM: CT CHEST/ABD/PEL W CLINICAL HISTORY: RUQ abd Pain, Cough. TECHNIQUE: Imaging Protocol: Axial computed tomography images with coronal and sagittal reformatted images were created and reviewed CONTRAST MATERIAL: Intravenous: Omnipaque 350 Contrast volume:100 ml Oral: yes / no COMPARISON: CR LUMBAR SPINE COMPLETE from 11/02/[address] CHEST LUNG CANCER SCREEN from 09/09/2021 CR XR CHEST 2V PA LATERAL from 07/29/2022 FINDINGS: CHEST: Tracheobronchial tree: Patent where visualized. Pulmonary parenchyma: No dominant measurable mass. Emphysematous changes greater at the upper lobes . Dependent changes noted at the lung bases, left greater than right. Left basilar atelectasis. In filtrate difficult to exclude.. Pleura: No effusion or pneumothorax. Lymph nodes: Within normal limits. Aorta: Thoracic portion non-dilated. Atherosclerotic changes. Heart: Enlarged, particularly left ventricle. Bones: Right rib fractures. Callus formation over a rib fracture CT counts for the questioned densit y on recent chest x-ray. No lytic or blastic lesions.No compression fractures. ABDOMEN: Liver: Normal density. No measurable mass. Gallbladder and biliary tract: No radiodense calculus or dilation. Pancreas: Normal density, no abnormal calcifications or inflammatory process. Spleen: Normal. Kidneys: Normal size, contour and axis. No radiodense stones or obstructive uropathy. No suspicious m asses seen. Adrenal glands: No masses seen. Aorta: Abdominal portion non-dilated. Lymph nodes: Within normal limits. Soft tissues: Unremarkable. PELVIS: Bladder: Symmetric distention, no gross wall thickening. Bowel: No obstruction or bowel wall thickening. Peritoneal cavity: No ascites, collection or mesenteric inflammatory response. Bones: Stable fractures of the inferior endplate L2 and superior L4. Degenerative changes greatest a t L5-S1. Reproductive organs: Within normal limits. IMPRESSION: Atelectasis and dependent changes at the left lung base. Question of superimposed infiltrate. No acute abnormality in the abdomen or pelvis.. RADIATION DOSE DELIVERED: 935.03mGy.cm Total DLP DATA REPOSITORY: All CT scans at this facility are submitted to the National Radiology Data Registry (NRDR) Dose Index Registry (DIR) with the [employer] (ACR). RADIATION OPTIMIZATION: All CT scans at this facility use at least one of these dose optimization te chniques: automated exposure control; mA and/or kV adjustment per patient size (includes targeted exa ms where dose is matched to clinical indication); or iterative reconstruction.
[2022-08-04] MEDS: Albuterol/Ipratropium 3 ML UPD VIAL UPD (11:27)
[2022-08-04] MEDS: oxyCODONE 5 MG TAB PO (11:27)
[2022-08-04] MEDS: Normal Saline Flush 10 ML SYR IVP (11:56)
[2022-08-04] MEDS: Normal Saline - Diluent 50 ML VIAL IJ (11:56)
[2022-08-04] MEDS: Omnipaque 350 MG/ML 500 ML BTL-Imaging package IJ (11:56)
[2022-08-04 12:45] VITALS: BP 180/75; PULSE 78; RESP 18; O2SAT 96
[2022-08-04] MEDS: Lidocaine 5% Patch 1 PATCH TP (12:45)
== END 2022-08-04 12:46 | disposition home or self-care (01) ==
PROVIDERS: Emergency Provider Registered Nurse Emergency; PCP Nurse Practitioner
DX: R10.11 Right upper quadrant pain (principal); R07.9 Chest pain, unspecified; N28.1 Cyst of kidney, acquired; R91.1 Solitary pulmonary nodule; F17.210 Nicotine dependence, cigarettes, uncomplicated
CPT/HCPCS: 74177; 80053; 83690; 99285; 71260; 83735; 85025; 99284; J7620

== ENCOUNTER 2022-11-14 00:34 | Outpatient (CLI) | payer MEDICARE, MEDICAID, SELFPAY ==
--- NOTE | 2022-11-14 13:51 | DI.DEXA_ITS ---
Exam(s) XR DEXA BONE DENSITY W/WO NIGHAT EXAM: XR DEXA BONE DENSITY W/WO NIGHAT CLINICAL HISTORY: screen osteoporosis, ASYMPTOMATIC MENOPAUSAL STATE, Z78.0 TECHNIQUE: CH[facility] Horizon C densitometer analysis of left hip, lumbar spine and left forearm. Lat eral survey image of the thoracic and lumbar spine. COMPARISON: 2006, 2015 and 2017 FINDINGS: Lateral view of the thoracic and lumbar spine shows no evidence of compression fractures. Bone mineral density measurements of the lumbar spine correspond to a total T-score of -1.2, in the osteopenic range. This is not significantly changed from 2018. This represents an 11.8 percent inc rease when compared with 2006. Bone mineral density measurements of the left hip correspond to a total T-score of -2.2. The femora l neck T-score is -1.9, in the osteopenic range. This is not significantly changed from 2018. This represents a 4.6 percent decrease compared with 2006.. The left forearm bone mineral density measurements correspond to a T-score of the distal 3rd of -1.0 , at the lower limit of normal. This is unchanged from 2015 and 2018. The forearm was not analyzed in 2006.. IMPRESSION: Osteopenia of the lumbar spine and left hip. Normal bone mineral density of the forearm.
== END 2022-11-14 00:54 ==
LOC: DI 00:34
PROVIDERS: Visit Provider Nurse Practitioner
DX: Z78.0 Asymptomatic menopausal state (principal); Z13.820 Encounter for screening for osteoporosis; M85.89 Other specified disorders of bone density and structure, multiple sites
CPT/HCPCS: 77080

== ENCOUNTER 2022-11-17 03:06 | Outpatient (CLI) | payer MEDICARE, MEDICAID, SELFPAY ==
[2022-11-17] MEDS: Albuterol HFA 18 GM 200 PUFF INH IH (16:47)
[2022-11-17] MEDS: Inhaler, Assist Device 1 EACH MC (16:48)
--- NOTE | 2022-11-21 10:22 | W.PFT ---
Date of service: 11/17/22 Time of Service: 15:38 Pulmonary Function Test Result Indications: Dyspnea Interpretation Spirometry: There is moderate airflow limitation. There is a significant bronchodilator response. The FVC is low. Lung Volumes: There is hyperinflation and air trapping. Diffusion Capacity: Diffusion is decreased Airway Pressure: Increased airways resistance. Impression There is moderate airflow obstruction with a bronchodilator response, decreased diffusion and air trapping. This is consistent with COPD with emphysema. The low FVC is due to obstruction. Clinical Correlation therefore is recommended.
== END 2022-11-17 03:07 | disposition home or self-care (01) ==
LOC: RT 03:06
PROVIDERS: Visit Provider Nurse Practitioner Family
DX: R05.9 Cough, unspecified (principal); F17.210 Nicotine dependence, cigarettes, uncomplicated; R06.00 Dyspnea, unspecified
CPT/HCPCS: 94060; 94726; 94729

== ENCOUNTER 2023-01-26 14:34 | Outpatient (REF) | payer MEDICARE, MEDICAID, SELFPAY ==
[2023-01-26 19:44] LABS: HCT 39.7 % (36.0-46.0); HGB 13.4 g/dL (11.2-15.7); MCH 31.5 pg (27.0-33.0); MCHC 33.8 % (32.0-36.0); MCV 93 fL (80-95); RBC 4.26 10^6/uL (3.93-5.22); RDW 13.2 % (11.7-14.6); RDW-SD 44.2 fL; WBC 5.51 10^3/uL (4.4-10.8)
[2023-01-26 20:02] LABS: Hemoglobin A1C 5.5 % (<5.7)
[2023-01-26 20:10] LABS: Ferritin 64 ng/mL (8-252); TSH 0.88 uIU/mL (0.36-3.74)
== END 2023-01-26 14:35 | disposition home or self-care (01) ==
LOC: NCHCN 14:34
PROVIDERS: Visit Provider Nurse Practitioner Family
DX: R53.83 Other fatigue (principal)
CPT/HCPCS: 82306; 85027; 82728; 83036; 84443

== ENCOUNTER 2024-02-11 12:45 | Outpatient (CLI) | payer MEDICARE, MEDICAID, SELFPAY ==
[2024-02-11 12:36] LABS: Abs Immature Grans 0.02 10^3/uL (0.0-0.06); Absolute Basophil Count 0.06 10^3/uL (0.0-0.2); Absolute Eosinophil Count 0.05 10^3/uL (0.0-0.7); Absolute Lymphocyte Count 2.19 10^3/uL (1.2-3.4); Absolute Monocyte Count 0.59 10^3/uL (0.1-0.8); Absolute Neutrophil Count 3.46 10^3/uL (1.2-6.7); Basophils % 0.9 %; Eosinophils % 0.8 %; HGB 14.2 g/dL (11.2-15.7); Immature Grans % 0.3 %; Lymphocytes % 34.4 %; MCH 31.6 pg (27.0-33.0); MCHC 33.8 % (32.0-36.0); MCV 94 fL (80-95); MPV 10.6 fL (8.0-11.0); Monocytes % 9.3 %; Neutrophils % 54.3 %; Platelet Count 176 10^3/uL (130-400); RBC 4.49 10^6/uL (3.93-5.22); RDW 13.4 % (11.7-14.6); RDW-SD 46.5 fL; WBC 6.37 10^3/uL (4.4-10.8)
[2024-02-11 13:22] LABS: Hemoglobin A1C 5.5 % (<5.7)
[2024-02-11 13:31] LABS: ALT 22 U/L (14-59); AST 21 U/L (15-37); Albumin 3.8 g/dL (3.4-5.0); Alkaline Phosphatase 83 U/L (46-116); Anion Gap 7.1 mmol/L (3-11); BUN 13 mg/dL (7-18); Bilirubin, Total 0.64 mg/dL (0.2-1.0); CO2 30.9 mmol/L (21.0-32.0); CREATININE 0.8 mg/dL (0.55-1.02); Calcium 10.1 mg/dL (8.5-10.1); Calculated LDL 87 mg/dL (<100); Chloride 102 mmol/L (98-107); Cholesterol 160 mg/dL (<200); Estimated GFR 79.71 (mL/min/1.73m2); Glucose 86 mg/dL (74-106); HDL Cholesterol 61 mg/dL (40-60); Sodium 140 mmol/L (136-145); TSH 1.02 uIU/Ml (0.36-3.74); Total Protein 7.5 g/dL (6.4-8.2); Triglyceride 60 mg/dL (<150); Vitamin B12 994 pg/mL (193-986)
== END 2024-02-11 12:46 | disposition home or self-care (01) ==
LOC: LBO 12:49
PROVIDERS: PCP Registered Nurse; Visit Provider Registered Nurse
DX: Z51.81 Encounter for therapeutic drug level monitoring (principal); F20.3 Undifferentiated schizophrenia; F50.89 Other specified eating disorder
CPT/HCPCS: 36415; 80053; 80061; 82306; 82607; 83036; 84443; 85025

== ENCOUNTER 2024-03-01 16:30 | Outpatient (REF) | payer MEDICARE, MEDICAID, SELFPAY ==
[2024-03-01 19:25] LABS: Abs Immature Grans 0.01 10^3/uL (0.0-0.06); Absolute Basophil Count 0.05 10^3/uL (0.0-0.2); Absolute Eosinophil Count 0.07 10^3/uL (0.0-0.7); Absolute Monocyte Count 0.46 10^3/uL (0.1-0.8); Absolute Neutrophil Count 4.12 10^3/uL (1.2-6.7); Basophils % 0.7 %; HCT 40.9 % (36.0-46.0); Immature Grans % 0.1 %; Lymphocytes % 31.8 %; MCH 31.7 pg (27.0-33.0); MCHC 34.2 % (32.0-36.0); MCV 93 fL (80-95); MPV 12.8 fL (8.0-11.0); Monocytes % 6.7 %; Neutrophils % 59.7 %; Platelet Count 149 10^3/uL (130-400); RBC 4.42 10^6/uL (3.93-5.22); RDW 13.6 % (11.7-14.6); WBC 6.91 10^3/uL (4.4-10.8)
[2024-03-01 19:48] LABS: Calculated LDL 103 mg/dL (<100); Cholesterol 175 mg/dL (<200); HDL Cholesterol 56 mg/dL (40-60); TSH 0.71 uIU/mL (0.36-3.74); Triglyceride 81 mg/dL (<150)
== END 2024-03-01 16:31 | disposition home or self-care (01) ==
LOC: LBN 16:30
PROVIDERS: PCP Family Medicine; Visit Provider Registered Nurse
DX: Z51.81 Encounter for therapeutic drug level monitoring (principal); F20.3 Undifferentiated schizophrenia; F50.89 Other specified eating disorder
CPT/HCPCS: 80061; 84443; 85025

== ENCOUNTER 2024-11-25 14:36 | Outpatient (CLI) | payer MEDICARE, MEDICAID, SELFPAY ==
[2024-11-25 19:39] LABS: Abs Immature Grans 0.02 10^3/uL (0.0-0.06); HCT 44.1 % (36.0-46.0); HGB 14.8 g/dL (11.2-15.7); Immature Grans % 0.3 %; MCH 31.8 pg (27.0-33.0); MCHC 33.6 % (32.0-36.0); MCV 95 fL (80-95); MPV 12.2 fL (8.0-11.0); Platelet Count 156 10^3/uL (130-400); RBC 4.66 10^6/uL (3.93-5.22); RDW 13.9 % (11.7-14.6); RDW-SD 47.9 fL; WBC 6.55 10^3/uL (4.4-10.8)
[2024-11-25 20:15] LABS: Hemoglobin A1C 5.3 % (<5.7)
[2024-11-25 20:19] LABS: ALT 35 U/L (14-59); AST 27 U/L (15-37); Albumin 3.9 g/dL (3.4-5.0); Alkaline Phosphatase 98 U/L (46-116); Anion Gap 7.0 mmol/L (3-11); BUN 13 mg/dL (7-18); Bilirubin, Total 0.6 mg/dL (0.2-1.0); CO2 33.0 mmol/L (21.0-32.0); Calcium 9.4 mg/dL (8.5-10.1); Chloride 102 mmol/L (98-107); Estimated GFR 79.71 (mL/min/1.73m2); Glucose 115 mg/dL (74-106); Potassium 4.2 mmol/L (3.5-5.1); Sodium 142 mmol/L (136-145); TSH (W/Ref FT4) 0.97 uIU/mL (0.36-3.74); Total Protein 7.1 g/dL (6.4-8.2); Vitamin B12 864 pg/mL (193-986); Vitamin D 25 Total 57 ng/mL (30-100)
== END 2024-11-25 14:37 | disposition home or self-care (01) ==
LOC: LBO 14:36 → LBN 18:33
PROVIDERS: PCP Family Medicine; Visit Provider Registered Nurse
DX: F20.3 Undifferentiated schizophrenia (principal)
CPT/HCPCS: 80053; 82306; 82607; 83036; 84443; 85025